=== PATIENT | female | born 1970 | race Two or more races ===

== ENCOUNTER 2019-07-23 10:19 | Emergency (ER) | payer OTHER ==
[~2019-07-23] VITALS: Ht 157.5 cm; Wt 63.5 kg
== END 2019-07-23 14:14 | disposition home or self-care (01) ==
LOC: ER 10:19
DX: B34.9 Viral infection, unspecified (principal)

== ENCOUNTER → 2019-12-13 | Outpatient (CLI) | payer OTHER | END | disposition home or self-care (01) | LOC: RX STUDY 09:36 | DX: R13.19 Other dysphagia (principal) ==

== ENCOUNTER 2022-02-09 18:23 | Emergency (ER) | payer OTHER ==
[~2022-02-09] VITALS: Ht 157.5 cm; Wt 63.5 kg
[2022-02-09] MEDS ORDERED: LEVOTHYROXINE25 MCG (19:29)
[2022-02-09] MEDS ORDERED: TOPROL XL50 M1 (19:29)
[2022-02-09] MEDS ORDERED: NORFLEX100MG PO (22:01)
[2022-02-09] MEDS ORDERED: CYCLOBENZAPRINE10 MG PO (22:01)
== END 2022-02-09 22:22 | disposition home or self-care (01) ==
LOC: ER 18:23
DX: M62.838 Other muscle spasm (principal); I10 Essential (primary) hypertension